=== PATIENT | female | born 1975 | race American Indian/Alaskan Native ===

== ENCOUNTER 2017-05-10 05:53 | Day surgery (SDC) | payer MEDICARE ==
[2017-05-05 10:10] LABS: Basophils # (Auto) 0.1 K/mm3 (0.0-0.1); Basophils % (Auto) 1.2 % (0.0-1.8); Eosinophils # (Auto) 0.3 K/mm3 (0.0-0.4); Hematocrit 38.2 % (30.3-42.9); Hemoglobin 12.7 gm/dl (10.1-14.3); Lymphocytes # (Auto) 2.6 K/mm3 (1.2-5.4); Lymphocytes % (Auto) 28.2 % (13.4-35.0); Mean Corpuscular HGB Conc 33 % (30-34); Mean Corpuscular Hemoglobin 28 pg (28-32); Mean Corpuscular Volume 83 fl (79-97); Monocytes # (Auto) 0.6 K/mm3 (0.0-0.8); Monocytes % (Auto) 5.9 % (0.0-7.3); Platelet Count 287 K/mm3 (140-440); Red Blood Count 4.58 M/mm3 (3.65-5.03); Red Cell Distribution Width 13.9 % (13.2-15.2)
[2017-05-05 10:30] LABS: Calcium 8.9 mg/dL (8.4-10.2)
--- NOTE | 2017-05-05 10:35 | Anesthesia Consultation ---
Anesthesia Consult and Med Hx Date of service: 05/05/17 - Airway Anesthetic Teeth Evaluation: Good (front upper incisor braces) ROM Head & Neck: Adequate Mental/Hyoid Distance: Adequate Mallampati Class: Class III Intubation Access Assessment: Probably Good - Pulmonary Exam CTA: Yes - Cardiac Exam Cardiac Exam: RRR - Pre-Operative Health Status ASA Pre-Surgery Classification: ASA3 Proposed Anesthetic Plan: General - Pre-Anesthesia Comment Pre-Anesthesia Comments: OA, chronic back and neck pain. Scheduled for uterine biopsy. - Pulmonary Hx Smoking: Yes (1ppd x 24yrs) - Cardiovascular System Hx Hypertension: Yes (x 20 yrs) - Central Nervous System Hx Psychiatric Problems: No - Endocrine Hx Non-Insulin Dependent Diabetes: Yes - Other Systems Hx Cancer: No Hx Obesity: Yes (morbid obesity)
--- NOTE | 2017-05-09 23:02 | History and Physical Report ---
History of Present Illness Date of examination: 05/08/17 Chief complaint: dysfunctional uterine bleeding History of present illness: Pt is a 42 year old -[place] female who presents with dysfunctional uterine bleeding minimally responsive to medical management. Past History Past Medical History: hypertension, diabetes, other (arthritis, depression) Past Surgical History: breast surgery, other (knee surgeries) Family/Genetic History: diabetes, heart disease, stroke, cancer Social history: no significant social history, Medications and Allergies Allergies Allergy/AdvReac Type Severity Reaction Status Date / Time No Known Allergies Allergy Unverified 05/04/17 12:33 Home Medications Medication Instructions Recorded Confirmed Last Taken Type Cyclobenzaprine [Flexeril] 10 mg PO TID PRN 05/05/17 05/05/17 Unknown History Lisinopril/Hydrochlorothiazide 1 tab PO QDAY 05/05/17 05/05/17 Unknown History [Zestoretic 20-12.5 mg] Metoprolol [Lopressor] 25 mg PO DAILY 05/05/17 05/05/17 Unknown History Naproxen [Naprosyn] 500 mg PO BID 05/05/17 05/05/17 Unknown History metFORMIN [Glucophage] 1,000 mg PO QDAY 05/05/17 05/05/17 Unknown History oxyCODONE /ACETAMINOPHEN [Percocet 1 tab PO Q6HR PRN 05/05/17 05/05/17 Unknown History 5/325] tiZANidine [Zanaflex] 4 mg PO DAILY 05/05/17 05/05/17 Unknown History traZODone [Desyrel] 100 mg PO QHS 05/05/17 05/05/17 Unknown History Active Meds: Active Medications Cefazolin Sodium (Ancef/Sterile Water 2 Gm/20 Ml) 2 gm in 20 mls @ 80 mls/hr IV PREOP NR PRN Reason: Protocol Sodium Chloride (Nacl 0.9% 1000 Ml) 1,000 mls @ 100 mls/hr IV DIRECT DUDLEY Review of Systems All systems: negative - Vital Signs Vital signs: Vital Signs Temp Pulse Resp BP 97.7 F 88 18 130/86 05/05/17 09:45 05/05/17 09:45 05/05/17 09:45 05/05/17 09:45 Temp Pulse Resp BP Pulse Ox 97.7 F 88 18 130/86 05/05/17 09:45 05/05/17 09:45 05/05/17 09:45 05/05/17 09:45 - Physical Exam Breasts: Positive: deferred Cardiovascular: Regular rate Lungs: Positive: Clear to auscultation Abdomen: Positive: soft (obese) Extremities: Positive: normal Results Result Diagrams: 05/05/17 09:50 05/05/17 09:50 All other labs normal. Ultrasound: other (11/22/16: Uterus 9.0x4.5x5.4 cm, EMS 9.1 mm. No adnexal mass or free fluid. Bladder appears unremarkable.) Assessment and Plan A: Dysfunctional Uterine Bleeding Morbid Obesity Diabetes Hypertension P: Proceed with dilation and curettage, hysteroscopy and other indicated procedures.
[~2017-05-10 05:53] MED LIST: ANCEF/STERILE WATER 2 GM/20 ML 2 GM/20 ML SYRINGE IV NR; NACL 0.9% 1000 ML 1,000 ML IV SCH
[2017-05-10] MEDS ORDERED: NACL BACTERIOSTATIC INFILTRATI ONE (06:36)
[2017-05-10] MEDS ORDERED: SILVER NITRATE TP ONE (07:24)
[2017-05-10] MEDS ORDERED: DIPRIVAN 10 MG/ML IV ONE ×2 (07:29→07:51)
[2017-05-10] MEDS ORDERED: XYLOCAINE MPF 2% ONE (07:29)
[2017-05-10] MEDS ORDERED: SUBLIMAZE ONE (07:30)
[2017-05-10] MEDS ORDERED: DILAUDID IV PRN (07:59)
[2017-05-10] MEDS ORDERED: ZOFRAN IV PRN (07:59)
--- NOTE | 2017-05-10 07:59 | Anesthesia Day of Surgery ---
Anesthesia Day of Surgery - Day of Surgery Patient Examined: Yes Patient H&P Reviewed: Yes Patient is NPO: Yes Beta Blockers: Yes Cardiac Clearance: Yes Pulmonary Clearance: Yes Rashad's Test: N/A
[2017-05-10] MEDS ORDERED: NACL 0.9% IR ONE (08:07)
[2017-05-10] MEDS ORDERED: NEO SYNEPHRINE/NS Syringe(OR USE) IV ONE (08:09)
[2017-05-10] MEDS ORDERED: ZOFRAN ONE (08:14)
[2017-05-10] MEDS ORDERED: DECADRON ONE (08:16)
[2017-05-10] MEDS ORDERED: TORADOL ONE (08:16)
[2017-05-10] MEDS ORDERED: D50W (25GM) Syringe IV ONE (08:45)
--- NOTE | 2017-05-10 08:48 | Short Stay Summary ---
Short Stay Documentation Date of service: 05/10/17 - History H&P: dictated Social history: no significant social history, - Allergies and Medications Current Medications: Allergies No Known Allergies Allergy (Unverified 05/04/17 12:33) Home Medications Medication Instructions Recorded Confirmed Last Taken Type Cyclobenzaprine [Flexeril] 10 mg PO TID PRN 05/05/17 05/10/17 05/09/17 History Lisinopril/Hydrochlorothiazide 1 tab PO QDAY 05/05/17 05/10/17 05/09/17 History [Zestoretic 20-12.5 mg] Metoprolol [Lopressor] 25 mg PO DAILY 05/05/17 05/10/17 05/10/17 04:30 History Naproxen [Naprosyn] 500 mg PO BID 05/05/17 05/10/17 05/09/17 History metFORMIN [Glucophage] 1,000 mg PO QDAY 05/05/17 05/10/17 05/09/17 History oxyCODONE /ACETAMINOPHEN [Percocet 1 tab PO Q6HR PRN 05/05/17 05/10/17 05/09/17 History 5/325] tiZANidine [Zanaflex] 4 mg PO DAILY 05/05/17 05/10/17 05/09/17 History traZODone [Desyrel] 100 mg PO QHS 05/05/17 05/10/17 05/08/17 History Active Medications Hydromorphone HCl (Dilaudid) 0.5 mg IV Q10MIN PRN PRN Reason: Pain , Severe (7-10) Stop: 05/10/17 13:00 Cefazolin Sodium (Ancef/Sterile Water 2 Gm/20 Ml) 2 gm in 20 mls @ 80 mls/hr IV PREOP NR PRN Reason: Protocol Stop: 05/10/17 23:45 Sodium Chloride (Nacl 0.9% 1000 Ml) 1,000 mls @ 100 mls/hr IV DIRECT DUDLEY Last Admin: 05/10/17 06:51 Dose: 100 mls/hr Ondansetron HCl (Zofran) 4 mg IV ONCE PRN PRN Reason: Nausea And Vomiting Stop: 05/10/17 09:00 - Physical exam Breasts: deferred - Brief post op/procedure progress note Date of procedure: 05/10/17 Pre-op diagnosis: Dysfunctional Uterine Bleeding, Morbid Obesity Post-op diagnosis: same Procedure: Hysteroscopy, dilation and curettage Anesthesia: GETA (LMA) Findings: 1) Small anteverted uterus with sounded to 8 cm 2) Shaggy endometrium Surgeon: OLI POWERS Estimated blood loss: minimal (10 mL) Pathology: list (endometrial curettings) Specimen disposition: to lab Condition: stable - Hospital course Hospital course: Pt underwent dilation and curettage with hysteroscopy which she tolerated well. She was subsequently observed in the PACU and discharged once she met discharge criteria. She will follow up in the office in two weeks for follow up with Dr Powers. - Disposition Condition at discharge: Stable Disposition: DC- TO HOME OR SELFCARE - Discharge Diagnoses (1) Dysfunctional uterine bleeding Status: Acute (2) Morbid obesity Status: Acute (3) Diabetes Status: Acute (4) Hypertension Status: Acute Short Stay Discharge Plan Activity: other (Nothing in vagina x 4 weeks ) Weight Bearing Status: Full Weight Bearing Diet: regular Follow up with: DWAYNE LOPEZ MD [Primary Care Provider] - 7 Days OLI POWERS MD [Staff Physician] - 05/24/17 (postop check- please call to schedule appt ) Forms: Outpatient Surgery DC Inst. Prescriptions: Ibuprofen [Motrin] 800 mg PO Q8HR PRN #30 tablet PRN Reason: Pain oxyCODONE /ACETAMINOPHEN [Percocet 5/325] 1 tab PO Q6HR PRN #30 tablet PRN Reason: Pain
--- NOTE | 2017-05-10 08:48 | Operative Report ---
Operative Report Operative Report: Date: May 10, 2017 Preoperative Diagnosis: 1) Dysfunctional Uterine Bleeding 2) Morbid Obesity BMI 52 Postoperative Diagnosis: Same Procedure: Hysteroscopy, Dilation and Curettage Surgeon: Adelina Powers MD Findings: 1) Small anteverted uterus with sounded to 8 cm 2) Shaggy endometrium Anesthesia: General with LMA EBL: 10 mL IVF: 700 mL Urine output: 60 mL, prior to the procedure Specimen: endometrial curettage to pathology Drains: None Complications: None Disposition: Stable to PACU Indication for Procedure: Pt is a 42 year old who presents for surgical evaluation of dysfunctional uterine bleeding secondary to minimal improvement with medical management. Operation in Detail: After the risks, benefits, alternatives and complications were explained to the patient she gave informed consent for the procedure. She was taken to the operating room with her IV noted to be running well and placed in the dorsal supine position. Her SCDs were noted to be in place and functioning. General anesthesia was then induced without difficulty. The patient was then placed in the dorsal lithotomy position. An exam under anesthesia was performed. The patient was then prepped and draped in a normal sterile fashion. A time out was performed. A red rubber catheter was placed in the bladder yielding 60 mL of clear but concentrated urine. An open-sided speculum was placed in the vagina for visualization of the cervix. A single tooth tenaculum was placed on the anterior lip of the cervix for traction. The uterus was sounded to 8 cm. The cervix was then gently dilated to #23 Nichols dilator. A hysteroscope was then placed into the endometrial cavity with evidence of fluffy endometrium. The hysteroscope was removed and a sharp curettage was performed of the endometrial cavity. The curettings were sent to pathology. All instruments were then removed from the cervix and vagina atraumatically. The patient was placed into dorsal supine position and extubated without difficulty. She was subsequently taken to the PACU in stable condition. All instrument and lap counts were correct x 2.
[2017-05-10] MEDS ORDERED: D50W (25GM) Syringe IV NR (10:00)
[2017-05-10] MEDS ORDERED: MOTRIN PO SCH (10:02)
[2017-05-10 10:53] VITALS: BP 119/64
[2017-05-10] MEDS ORDERED: PERCOCET 5/325 PO SCH (11:00)
--- NOTE | 2017-05-10 16:06 | Post Anesthesia Evaluation ---
- Post Anesthesia Evaluation Patient Participated: Yes Airway Patent: Yes Stable Respiratory Function: Yes Nausea/Vomiting: No Temp > 96.8F: Yes Pain Manageable: Yes Adequeate Hydration: Yes Anesthesia Complications: No
== END 2017-05-10 10:45 | disposition home or self-care (01) ==
LOC: OR 05:53
PROVIDERS: ATTEND Obstetrics & Gynecology
DX: N93.8 Other specified abnormal uterine and vaginal bleeding (principal); E11.9 Type 2 diabetes mellitus without complications; I10 Essential (primary) hypertension; M19.90 Unspecified osteoarthritis, unspecified site; E66.01 Morbid (severe) obesity due to excess calories; Z68.43 Body mass index [BMI] 50.0-59.9, adult; Z79.84 Long term (current) use of oral hypoglycemic drugs; Z79.899 Other long term (current) drug therapy; Z98.890 Other specified postprocedural states; Z87.891 Personal history of nicotine dependence; Z96.652 Presence of left artificial knee joint
CPT/HCPCS: 36415; 58558; 80048; 82962; 84703; 85025; 88305; A4217; J0690; J1100; J1885; J2370; J2405; J2704; J3010; J7030

== ENCOUNTER 2019-03-20 05:58 | Observation (INO) | payer MEDICARE ==
[2019-03-18 12:18] LABS: Basophils # (Auto) 0.1 K/mm3 (0.0-0.1); Basophils % (Auto) 1.5 % (0.0-1.8); Eosinophils # (Auto) 0.3 K/mm3 (0.0-0.4); Eosinophils % (Auto) 3.1 % (0.0-4.3); Hematocrit 38.7 % (30.3-42.9); Hemoglobin 12.9 gm/dl (10.1-14.3); Lymphocytes % (Auto) 31.9 % (13.4-35.0); Mean Corpuscular HGB Conc 33 % (30-34); Mean Corpuscular Volume 82 fl (79-97); Monocytes # (Auto) 0.5 K/mm3 (0.0-0.8); Monocytes % (Auto) 4.9 % (0.0-7.3); Platelet Count 341 K/mm3 (140-440); Red Blood Count 4.73 M/mm3 (3.65-5.03); Red Cell Distribution Width 14.5 % (13.2-15.2)
[2019-03-18 12:36] LABS: Alanine Aminotransferase 10 units/L (7-56); Albumin 4.1 g/dL (3.9-5); BUN/Creatinine Ratio 14; Blood Urea Nitrogen 11 mg/dL (7-17); Calcium 9.7 mg/dL (8.4-10.2); Hemolysis Index 10
--- NOTE | 2019-03-18 14:09 | Anesthesia Consultation ---
Anesthesia Consult and Med Hx Date of service: 03/18/19 - Airway Anesthetic Teeth Evaluation: Good ROM Head & Neck: Adequate Mental/Hyoid Distance: Adequate Intubation Access Assessment: Probably Good - Pulmonary Exam CTA: Yes - Cardiac Exam Cardiac Exam: RRR - Pre-Operative Health Status ASA Pre-Surgery Classification: ASA1, ASA3 Proposed Anesthetic Plan: General Nerve Block: TAP BLOCK - Pulmonary Hx Smoking: Yes (SINCE AGE 18; 1/2 PPD) - Cardiovascular System Hx Hypertension: Yes (1997) - Central Nervous System Hx Back Pain: Yes Hx Psychiatric Problems: Yes - Endocrine Hx Non-Insulin Dependent Diabetes: Yes - Hematic Hx Anemia: Yes - Other Systems Hx Alcohol Use: No Hx Substance Use: No Hx Cancer: No Hx Obesity: Yes (morbid obesity BMI 48) - Additional Comments Anesthesia Medical History Comments: Smoker , HTN , DM for GA and TAP block
--- NOTE | 2019-03-19 16:51 | History and Physical Report ---
History of Present Illness Date of examination: 03/19/19 Date of admission: 03/20/2019 Chief complaint: dysfunctional uterine bleeding History of present illness: 43y/o with dysfunctional uterine bleeding and dysmenorrhea. The patient underwent an endometrial biopsy with benign findings. Pelvic ultrasound demonstrated a uterine length of 9.0cm. The patient has elected for surgical management. Past History Past Medical History: hypertension, diabetes, other (anxiety; depression; morbid obesity) Past Surgical History: other (knee; breast lumpectomy) Social history: single - Obstetrical History : 1 Para: 1 Hx # Term Pregnancies: 1 Number of Pregnancies: 0 Spontaneous Abortions: 0 Induced : 0 Number of Living Children: 1 Medications and Allergies Allergies Allergy/AdvReac Type Severity Reaction Status Date / Time No Known Allergies Allergy Verified 03/15/19 16:16 Home Medications Medication Instructions Recorded Confirmed Last Taken Type ALPRAZolam [Xanax TAB] 0.25 mg PO BID PRN 03/18/19 03/18/19 Unknown History Amlodipine/Valsartan/Hcthiazid 1 each PO DAILY 03/18/19 03/18/19 Unknown History [Exforge Hct 10-160-25 mg Tab] AtorvaSTATin [Lipitor] 40 mg PO QHS 03/18/19 03/18/19 Unknown History Ergocalciferol [Vitamin D2] 1 cap PO QWEEK 03/18/19 03/18/19 Unknown History Glimepiride [Amaryl] 4 mg PO BID 03/18/19 03/18/19 Unknown History Liraglutide [Victoza 2-Andrew] 1.8 mg SQ QDAY 03/18/19 03/18/19 Unknown History Metformin HCl [Glucophage] 1,000 mg PO BID 03/18/19 03/18/19 Unknown History Sertraline [Zoloft] 100 mg PO QDAY 03/18/19 03/18/19 Unknown History buPROPion HCl [Wellbutrin Sr] 150 mg PO BID 03/18/19 03/18/19 Unknown History Active Meds: Active Medications Lactated Ringer's (Lactated Ringers) 1,000 mls @ 100 mls/hr IV DIRECT DUDLEY Review of Systems All systems: negative Genitourinary: vaginal bleeding, pelvic pain - Vital Signs Vital signs: Vital Signs Temp Pulse Resp BP Pulse Ox 98.9 F 85 18 159/88 99 03/18/19 11:24 03/18/19 11:24 03/18/19 11:24 03/18/19 11:24 03/18/19 11:24 Temp Pulse Resp BP Pulse Ox 98.9 F 85 18 159/88 99 03/18/19 11:24 03/18/19 11:24 03/18/19 11:24 03/18/19 11:24 03/18/19 11:24 - Physical Exam Breasts: Positive: deferred Cardiovascular: Regular rate Lungs: Positive: Clear to auscultation Results Result Diagrams: 03/18/19 11:30 03/18/19 11:30 All other labs normal. Assessment and Plan - Patient Problems (1) Dysfunctional uterine bleeding Status: Acute Plan to address problem: will proceed with a robotic hysterectomy/BSO (2) Morbid obesity Status: Acute
[~2019-03-20 05:58] MED LIST changes: -ANCEF/STERILE WATER 2 GM/20 ML 2 GM/20 ML SYRINGE IV NR; +GABAPENTIN 300 MG CAP PO NR; +LACTATED RINGERS 1,000 ML IV SCH; +MIDAZOLAM 2 MG/2 ML INJ IV NR; -NACL 0.9% 1000 ML 1,000 ML IV SCH; +fentaNYL 100 MCG/2 ML INJ IV SCH
[2019-03-20] MEDS ORDERED: fentaNYL 100 MCG/2 ML INJ IV NR (07:10)
--- NOTE | 2019-03-20 07:10 | Anesthesia Day of Surgery ---
Anesthesia Day of Surgery - Day of Surgery Patient Examined: Yes Patient H&P Reviewed: Yes Patient is NPO: Yes
[2019-03-20] MEDS ORDERED: ONDANSETRON 4 MG/2 ML INJ IV PRN (07:11)
[2019-03-20] MEDS ORDERED: INSULIN REGULAR, HUMAN 100 UNITS/1 ML IV NR (07:14)
[2019-03-20] MEDS ORDERED: LIDOCAINE (1%) 10 MG/1 ML VIAL 20 ML MDV ONE (07:14)
[2019-03-20] MEDS ORDERED: BUPIVACAINE-EPINEPHRINE/PF 0.5%-1:200,000 (30 ML) VIAL INFILTRATI ONE (07:15)
[2019-03-20] MEDS ORDERED: CELECOXIB 200 MG CAP ONE (07:21)
[2019-03-20] MEDS ORDERED: fentaNYL 100 MCG/2 ML INJ ONE (07:22)
[2019-03-20] MEDS ORDERED: PROPOFOL 200 MG/20 ML VIAL IV ONE (07:23)
[2019-03-20] MEDS ORDERED: HYDROmorphone 1 MG/1 ML INJ ONE ×2 (07:23→10:24)
[2019-03-20] MEDS ORDERED: NEOMY 40 MG/POLYMYXIN B 200,000 UNITS/ML (GU) AMPULE IR ONE ×2 (07:24→09:00)
[2019-03-20] MEDS ORDERED: ROCURONIUM 50 MG/5 ML INJ IV ONE (07:24)
[2019-03-20] MEDS ORDERED: LIDOCAINE MPF (2%) 20 MG/1 ML VIAL 5 ML ONE (07:24)
[2019-03-20] MEDS ORDERED: MIDAZOLAM 2 MG/2 ML INJ IV NR (08:00)
[2019-03-20] MEDS ORDERED: GABAPENTIN 300 MG CAP PO NR (08:00)
[2019-03-20] MEDS ORDERED: CELECOXIB 200 MG CAP PO NR (08:00)
[2019-03-20] MEDS ORDERED: SODIUM CHLORIDE 0.9% IRRIG SOLN 2000 ML IR ONE (09:00)
[2019-03-20] MEDS ORDERED: SODIUM CHLORIDE 0.9% IRR 1,500 ML BOTTLE IR ONE (09:00)
--- NOTE | 2019-03-20 09:23 | Operative Report ---
Operative Report Operative Report: Date of surgery: 03/20/2019 Preoperative diagnoses: Dysfunctional uterine bleeding; dysmenorrhea Postoperative diagnoses: Same as above Procedure: Robotic hysterectomy and bilateral salpingo-oophorectomy Surgeon: Agustina Leal M.D. Agricultural Inspector: Ramesh Mitchell Anesthesia: Gen. endotracheal anesthesia Estimated blood loss: 50 mL Pathology: Uterus, cervix, bilateral tubes and ovaries Indication: 43-year-old with a history of dysfunctional uterine bleeding and dysmenorrhea. The patient elected to undergo definitive surgical management. Procedure: The patient was taken to the operating room and given general endotracheal anesthesia without complication. She is prepped and draped in a normal sterile fashion. A bivalve speculum was placed in the patient's vagina and a single- tooth tenaculum placed on the anterior lip of the cervix. The uterus was sounded with the uterine sound. A [employer] uterine manipulator was placed in the bivalve speculum was then removed. Attention was then turned to the patient's abdomen where a 12 millimeter supra umbilical skin incision was then made. A Veress needle was placed and peritoneal entry was verified water-filled syringe. Insufflation of the peritoneal cavity was performed with CO2 gas. The 12 mm trocar was then placed under direct visualization. An additional 8 mm trocar was placed on the patient's left and right lateral side just opposite of the supraumbilical trocar. An additional 5 mm right lateral trocar was then placed as the accessory port. The Zac Louis device was used to close the fascia of the 12 mm incision. The patient was then placed in steep Trendelenburg. The da [employer] robot was then engaged. A fenestrated forcep was placed in arm 2 and a vessel sealer was placed in arm 1. The surgeon then transferred to the surgical console. General survey revealed evidence of mildly enlarged ovaries bilaterally. The uterus and tubes were normal in appearance. No evidence of pelvic adhesive disease. The infundibulopelvic ligament was then isolated on the right. The vessel sealer was used to coagulate the ligament which was then transected. The tube and ovary were transected from the supply. The round ligament was then coagulated and transected also. The vesicouterine peritoneum was then entered from the patient's right side. The uterine vessels were then coagulated with the vessel sealer. The vessels were then transected . Attention was then turned to the patient's left side where the infundibulopelvic ligament and mesosalpinx were again isolated coagulated and transected. The vesical peritoneum was then entered from the left and joined in the midline. Peritoneum was reflected off of the lower uterine segment. Uterine vessels were then coagulated and then transected. The blood supply to the uterus was adequately contained, a posterior colpotomy was made. The V care ring was visualized. Posterior colpotomy was created with the monopolar scissors. The incision was continued circumferentially until anterior colpotomy was made. The cervix and uterus were amputated from the vaginal cuff. The uterus was then removed along with the tubes and ovaries bilaterally through the vagina and a warm laparotomy sponge was placed and maintain the pneumoperitoneum. The va ginal cuff was then closed in a running fashion with V lock suture. Irrigation of the pelvis was performed. Hemoblast was applied to the incision. The skin was then reapproximated with 4-0 Monocryl. The tissue was sent to pathology which included the cervix, uterus, tubes and ovaries. The patient was then successfully extubated. She was then taken to the recovery room in stable condition. All sponge laps and needle counts were correct x2.
[2019-03-20] MEDS ORDERED: oxyCODONE /ACETAMINOPHEN 5-325MG TAB PO PRN (09:24)
[2019-03-20] MEDS ORDERED: NEOSTIGMINE 10MG/10 ML INJ MDV ONE (09:24)
[2019-03-20] MEDS ORDERED: IBUPROFEN 800 MG TAB PO PRN (09:24)
[2019-03-20] MEDS ORDERED: MORPHINE 4 MG/1 ML INJ IV PRN (09:24)
[2019-03-20] MEDS ORDERED: GLYCOPYRROLATE 0.4 MG/2 ML INJ ONE (09:25)
[2019-03-20] MEDS ORDERED: ONDANSETRON 4 MG/2 ML INJ ONE (09:26)
[2019-03-20] MEDS ORDERED: KETOROLAC 30 MG/1 ML INJ ONE (09:27)
[2019-03-20] MEDS: HYDROmorphone 1 MG/1 ML INJ IV PRN ×4 (10:03→10:33)
[2019-03-20] MEDS: KETOROLAC 30 MG/1 ML INJ IV SCH ×3 (10:56→21:39)
--- NOTE | 2019-03-20 14:12 | Post Anesthesia Evaluation ---
- Post Anesthesia Evaluation Patient Participated: Yes Airway Patent: Yes Stable Respiratory Function: Yes Nausea/Vomiting: No Temp > 96.8F: Yes Pain Manageable: Yes Adequeate Hydration: Yes Anesthesia Complications: No Block Receding Appropriately: Not Applicable Patient on Ventilator: No
[2019-03-20] MEDS: D5W/LACTATED RINGERS 1,000 ML IV SCH (17:45)
[2019-03-20] MEDS ORDERED: ZOLPIDEM 5 MG TAB PO PRN (22:00)
[2019-03-21] MEDS: D5W/LACTATED RINGERS 1,000 ML IV SCH (03:43)
[2019-03-21] MEDS: KETOROLAC 30 MG/1 ML INJ IV SCH ×2 (03:44→09:21)
[2019-03-21 06:12] LABS: Hematocrit 33.6 % (30.3-42.9)
--- NOTE | 2019-03-21 08:50 | Progress Note ---
Assessment and Plan - Patient Problems (1) Dysfunctional uterine bleeding Current Visit: No Status: Acute Plan to address problem: patient doing well (2) Morbid obesity Current Visit: No Status: Acute Subjective - Subjective Date of service: 03/21/19 Interval history: Patient without complaints. Patient tolerated regular diet. Pain well controlled. Patient reports: appetite normal, voiding normally, pain well controlled Objective - Vital Signs Latest vital signs: Vital Signs Temp Pulse Resp BP BP Pulse Ox 03/21/19 06:30 98.5 F 76 20 120/62 98 03/21/19 03:44 18 03/21/19 01:46 98.4 F 79 18 103/52 98 03/20/19 22:09 18 03/20/19 21:39 20 03/20/19 21:37 98.3 F 79 18 115/54 96 03/20/19 18:15 97.8 F 66 18 133/74 97 03/20/19 12:00 97.7 F 75 18 135/84 99 03/20/19 10:45 70 14 129/63 97 03/20/19 10:30 69 14 136/69 98 03/20/19 10:15 97.0 F L 68 14 129/75 96 03/20/19 10:00 69 16 135/78 97 03/20/19 09:50 70 16 139/83 98 03/20/19 09:45 67 16 136/75 97 03/20/19 09:42 98.3 F 65 16 132/71 97 Intake and Output 03/20/19 03/21/19 03/21/19 22:59 06:59 14:59 Intake Total 360 1240 Output Total 1100 Balance 360 140 Intake: IV 1000 D5lr 1,000 ml @ 125 mls/ 1000 hr IV DIRECT [facility] Rx#: [id number] Oral 240 Intake, Free Water 360 Output: Urine 1100 Indwelling Catheter 1100 Other: Total, Intake Amount 240 Total, Output Amount 1100 Voiding Method Indwelling Catheter Toilet Weight 163.293 kg - Exam Breasts: Present: deferred Cardiovascular: Present: Regular rate Abdomen: Present: normal appearance - Labs Labs: Abnormal lab results 03/20/19 03/21/19 Range/Units 10:02 06:55 POC Glucose 205 H 133 H (70-105)
--- NOTE | 2019-03-21 08:52 | Discharge Summary ---
Providers - Providers Date of Admission: 03/20/19 09:24 Date of discharge: 03/21/19 Attending physician: MICHAEL RAZO Primary care physician: NORM ACOSTA DO Hospitalization Reason for admission: other (DUB and dysmenorrhea) Procedure: other (robotic hysterectomy and BSO) Incision: normal Hospital course: Patient admitted for a robotic hysterectomy. See op note. Postop uncomplicated Condition at discharge: Good Disposition: DC-01 TO HOME OR SELFCARE - Discharge Diagnoses (1) Dysfunctional uterine bleeding Status: Acute (2) Morbid obesity Status: Acute Plan - Discharge Medications Prescriptions: Docusate Sodium [Colace] 100 mg PO BID PRN #60 capsule PRN Reason: Constipation Ibuprofen [Motrin] 800 mg PO Q8HR PRN #60 tablet PRN Reason: Pain, Mild (1-3) oxyCODONE /ACETAMINOPHEN [Percocet 5/325] 1 tab PO Q6HR PRN #30 tablet PRN Reason: Pain - Provider Discharge Summary Activity: no sex for 6 weeks, no heavy lifting 4 weeks, no strenuous exercise Diet: routine Instructions: routine Additional instructions: [] Smoking cessation referral if applicable(refer to patient education folder for contact #) [] Refer to [facility] Booklet Call your doctor immediately for: * Fever > 100.5 * Heavy vaginal bleeding ( >1 pad per hour) * Severe persistent headache * Shortness of breath * Reddened, hot, painful area to leg or breast * Drainage or odor from incision. * Keep incision clean and dry at all times and follow doctor's instructions regarding bathing/showering schedule followup in 4 weeks - Follow up plan
[2019-03-21 12:57] VITALS: BP 135/62
== END 2019-03-21 15:15 | disposition home or self-care (01) ==
LOC: OR 05:58 → OB 09:24
PROVIDERS: ADMIT Obstetrics & Gynecology; ATTEND Obstetrics & Gynecology
DX: N93.8 Other specified abnormal uterine and vaginal bleeding (principal); I10 Essential (primary) hypertension; E11.9 Type 2 diabetes mellitus without complications; F41.9 Anxiety disorder, unspecified; F32.9 Major depressive disorder, single episode, unspecified; E66.01 Morbid (severe) obesity due to excess calories; Z68.42 Body mass index [BMI] 45.0-49.9, adult
CPT/HCPCS: 36415; 58571; 64450; 80053; 82962; 84703; 85014; 85018; 85025; 86850; 86900; 86901; 88307; 96374; 96375; 96376; A4217; G0378; J0690; J1170; J1885; J2250; J2270; J2405; J2704; J2710; J3010; J7120; J7121; S2900; 88302; J1815